=== PATIENT | male | born 1965 | race Caucasian/White ===

== ENCOUNTER 2018-12-27 12:59 | Day surgery (SDC) | payer MEDICARE, MEDICAID ==
[~2018-12-27] VITALS: Ht 165.1 cm; Wt 82.6 kg
[2018-12-27] MEDS ORDERED: LIDOCAINE 1% INJ 20 ML 20 ML VIAL ONE (13:00)
--- OUTSIDE RECORDS SUMMARY | 2018-12-27 13:02 | XMS REPORT ---
Author Author GIANLUCA HARDING Organization [facility] Address [address] [place] [address] Care Team Providers Care Mri Assistant Name Role Phone GIANLUCA HARDING Unavailable PROBLEMS Type Condition ICD9-CM Code [id number] Code Onset Dates Condition Status SNOMED Code Problem Essential hypertension I10 Active [id number] Problem Stage 5 chronic kidney disease not on chronic dialysis N18.5 Active [id number] ALLERGIES No Information ENCOUNTERS Encounter Location Date Diagnosis [facility] [address] [id number] [place] [address] [facility] [address] [id number] [place] [address] Nov Chronic kidney disease, stage 4 (severe) N18.4 ; Hypertensive chronic kidney disease with stage 1 through stage 4 chronic kidney disease, or unspecified chronic kidney disease I12.9 and Essential hypertension I10 IMMUNIZATIONS No Known Immunizations SOCIAL HISTORY Never Assessed REASON FOR VISIT PLAN OF CARE VITAL SIGNS MEDICATIONS Unknown Medications RESULTS No Results PROCEDURES No Known procedures INSTRUCTIONS MEDICATIONS ADMINISTERED No Known Medications MEDICAL (GENERAL) HISTORY Type Description Date Medical History hypertension Medical History 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
--- OUTSIDE RECORDS SUMMARY | 2018-12-27 13:02 | XMS REPORT ---
Author Author GIANLUCA HARDING Organization [facility] Address [address] [place] [address] Care Team Providers Care Technical Training Instructor Name Role Phone GIANLUCA HARDING Unavailable PROBLEMS Type Condition ICD9-CM Code [id number] Code Onset Dates Condition Status SNOMED Code Problem Essential hypertension I10 Active [id number] Problem Stage 5 chronic kidney disease not on chronic dialysis N18.5 Active [id number] ALLERGIES No Known Allergies ENCOUNTERS Encounter Location Date Diagnosis [facility] [address] [id number] [place] [address] Nov [facility] [address] [id number] [place] [address] Nov Chronic kidney disease, stage 4 (severe) N18.4 ; Hypertensive chronic kidney disease with stage 1 through stage 4 chronic kidney disease, or unspecified chronic kidney disease I12.9 and Essential hypertension I10 IMMUNIZATIONS No Known Immunizations SOCIAL HISTORY Never Assessed REASON FOR VISIT Establish Care. , Pt in kidney failure 10%, Pt states will start Dialysis when he gets medicaid., Pt moved to [place] a couple weeks ago from [place]. LAYLA Anderson PLAN OF CARE Activity Details Follow Up prn, pending labs Reason: Pending Test MICROALBUMIN/CREATININE RATIO, URINE VITAL SIGNS Height 64.5 in 2017-12-05 Weight 149.6 lbs 2017-12-05 Temperature 98.2 degrees Fahrenheit 2017-12-05 Heart Rate 112 bpm 2017-12-05 Respiratory Rate 18 2017-12-05 Oximetry 99 % 2017-12-05 BMI 25.28 kg/m2 2017-12-05 Blood pressure systolic 160 mmHg 2017-12-05 Blood pressure diastolic 108 mmHg 2017-12-05 MEDICATIONS Medication Instructions Dosage Frequency Start Date End Date Duration Status Metoprolol Tartrate 50 MG Orally Twice a day 1 tablet with food 12h Active HydrALAZINE HCl 50 MG Orally 3 times a day 1 tablet with food 8h Active Clonidine HCl 0.1 MG Orally Twice a day 1 tablet 12h Active RESULTS No Results PROCEDURES Procedure Date Ordered Result Body Site COMPREHEN METABOLIC PANEL December 05, 2017 ASSAY OF MAGNESIUM December 05, 2017 VENIPUNCT, ROUTINE* December 05, 2017 COMPLETE CBC W/AUTO DIFF WBC December 05, 2017 ASSAY OF PHOSPHORUS December 05, 2017 MICROALBUMIN, QUANTITATIVE December 05, 2017 ASSAY OF URINE CREATININE December 05, 2017 INSTRUCTIONS MEDICATIONS ADMINISTERED No Known Medications MEDICAL [...]
--- OUTSIDE RECORDS SUMMARY | 2018-12-27 13:03 | XMS REPORT ---
Author Author Avery Lucero [facility] Address [address] [place], [place] [address] Care Team Providers Care Aerodynamicist Name Role Phone Avery Lucero PCP Avery Lucero PreferredProvider Allergies and Adverse Reactions Name Reaction Notes No known allergies Plan of Treatment Planned Activity Comments Planned Date Planned Time Plan/Goal HCV genotyping ser/plas amplified probe 02/01/2018 12:00 AM HCV Ab confirm 02/01/2018 12:00 AM HEPATITIS C QUANT RNA PCR 02/01/2018 12:00 AM Liver function panel 02/01/2018 12:00 AM HIV 1 + 2 ab ser w reflex to Western blot conf 02/01/2018 12:00 AM Medications Active Name Start Date Estimated Completion Date SIG Comments sevelamer carbonate 800 mg oral tablet take 2 tablets (1,600 mg) by oral route 3 times per day with meals carvedilol 12.5 mg oral tablet take 1 tablet (12.5 mg) by oral route 2 times per day with food Valium 5 mg oral tablet 05/02/2018 07/01/2018 take 1 tablet by oral route 2 times a day as needed for 30 days atorvastatin 40 mg oral tablet 06/18/2018 TAKE 1 TABLET BY MOUTH AT BEDTIME ropinirole 3 mg oral tablet 06/18/2018 TAKE 1 TABLET BY MOUTH AT BEDTIME carvedilol 25 mg oral tablet 06/18/2018 TAKE 1 TABLET BY MOUTH TWICE DAILY gabapentin 600 mg oral tablet 06/18/2018 TAKE 2 TABLETS BY MOUTH IN THE MORNING AND TAKE 1 TABLET AT BEDTIME hydralazine 10 mg oral tablet 06/18/2018 TAKE 1 TABLET BY MOUTH THREE TIMES DAILY amitriptyline 25 mg oral tablet 06/18/2018 TAKE 1 TABLET BY MOUTH AT BEDTIME diazepam 5 mg oral tablet 06/18/2018 TAKE 1 TABLET BY MOUTH TWICE DAILY NEEDED amlodipine 10 mg oral tablet 06/18/2018 TAKE 1 TABLET BY MOUTH AT BEDTIME clonidine HCl 0.1 mg oral tablet 06/18/2018 TAKE 1 TABLET BY MOUTH ON MONDAY , MONDAY , AND MONDAY gabapentin 800 mg oral tablet 06/29/2018 10/27/2018 take 1 tablet (800 mg) by oral route 3 times per day for 30 days Diabetic Shoes 06/29/2018 as directed Name Start Date Expiration Date SIG Comments metoprolol tartrate 100 mg oral tablet 02/06/2018 06/06/2018 take 1 tablet ( 100 mg) by oral route 2 times per day for 30 days gabapentin 300 mg oral capsule 02/15/2018 03/17/2018 take 1 capsule (300 mg) by oral route 3 times per day for 30 days Discontinued Name Start Date Discontinued Date SIG Comments Valium 2 mg oral tablet 01/01/2018 02/06/2018 take 1 tablet by oral route 2 times a day as needed Problem List Not available. Vital Signs Date Time BP-Sys(mm[Hg] BP-Caryl(mm[Hg]) HR(bpm) RR(rpm) Temp WT HT HC BMI BSA BMI Percentile O2 Sat(%) 06/29/2018 9:21:00 AM 122 mmHg 70 mmHg 79 bpm 16 rpm 98.2 F 162 lbs 65 in 26.9579 kg/m 1.8358 m 98 % 06/14/2018 3:03:00 PM 158.25 lbs 65 in 26.33 kg/m2 1.81 m2 05/02/2018 11:00:00 AM 188 mmHg 100 mmHg 96 bpm 16 rpm 98.2 F 150 lbs 65 in 24.96 kg/m2 1.77 m2 99 % 02/06/2018 1:40:00 PM 170 mmHg 108 mmHg 87 bpm 18 rpm 99 F 151.25 lbs 65 in 25.1691 kg/m 1.7738 m 100 % 01/01/2018 3:03:00 PM 130 mmHg 78 mmHg 64 bpm 18 rpm 98.4 F 145 lbs 65 in 24.129 kg/m 1.74 m2 100 % Social History Name Description Comments Tobacco Current every day smoker Alcohol History of Procedures Date Ordered Description Order Status 02/06/2018 12:00 AM ECHO EXAM OF ABDOMEN Returned Results Summary Not available. History Of Immunizations Not available. History of Past Illness Name Date of Onset Comments End stage kidney disease Anemia Hypertension Hepatitis C Type 2 diabetes mellitus COPD Kidney failure May 14 2018 3:05PM Hepatitis C Jan 01 2018 3:05PM Anxiety Jan 01 2018 3:05PM Hepatitis C Feb 01 2018 9:35AM Hepatitis C Feb 06 2018 2:02PM Hypertension Feb 06 2018 1:42PM Insomnia, unspecified May 02 2018 11:05AM ESRD (end stage renal disease) May 02 2018 11:05AM Anxiety May 02 2018 11:05AM End stage kidney disease Jun 14 2018 3:03PM Diabetes Mellitus, Type II Jun 29 2018 9:30AM End stage renal disease Jun 29 2018 9:30AM Callus of heel Jun 29 2018 9:30AM Payers Insurance Name Company Name Plan Name Plan Number Policy Number Policy Group Number Start Date [employer] - [place] [employer] [place] [id number] N/A Medicare RHC Medicare RHC [id number] N/A Medicare Part A Medicare - Lab/Xray [id number] N/A History of Encounters Visit Date Visit Type Provider 06/29/2018 Office visit Avery Lucero MD 06/14/2018 Office visit Avery Lucero MD 05/02/2018 Office visit Avery Lucero MD 02/06/2018 Office visit Avery Lucero MD 01/04/2018 Hospital Denny Field MD 01/01/2018 Office visit Avery Lucero MD 12/05/2017 [facility] Denny Field MD
--- OUTSIDE RECORDS SUMMARY | 2018-12-27 13:03 | XMS REPORT ---
Author Author Avery Lucero [facility] Address [address] [place] [id number] Care Team Providers Care Basting Cleaner Name Role Phone Avery Lucero PCP Avery [...] route 2 times per day with food ropinirole 3 mg oral tablet 06/18/2018 TAKE 1 TABLET BY MOUTH AT BEDTIME gabapentin 600 mg oral tablet 06/18/2018 TAKE 2 TABLETS BY MOUTH IN THE MORNING AND TAKE 1 TABLET AT BEDTIME Diabetic Shoes 06/29/2018 as directed ropinirole 4 mg oral tablet 07/20/2018 TAKE 1 TABLET BY MOUTH AT BEDTIME diazepam 5 mg oral tablet 07/23/2018 TAKE 1 TABLET BY MOUTH AT BEDTIME Lantus Solostar U-100 Insulin 100 unit/mL (3 mL) subcutaneous insulin pen 07/26 10 units daily hydralazine 10 mg oral tablet 08/17/2018 TAKE 1 TABLET BY MOUTH THREE TIMES DAILY clonidine HCl 0.1 mg oral tablet 08/17/2018 TAKE 1 TABLET BY MOUTH ON MONDAY , MONDAY , AND MONDAY carvedilol 25 mg oral tablet 08/17/2018 TAKE 1 TABLET BY MOUTH TWICE DAILY gabapentin 800 mg oral tablet 08/17/2018 TAKE 1 TABLET BY MOUTH THREE TIMES DAILY atorvastatin 40 mg oral tablet 08/17/2018 TAKE 1 TABLET BY MOUTH AT BEDTIME amitriptyline 25 mg oral tablet 08/17/2018 TAKE 1 TABLET BY MOUTH AT BEDTIME amlodipine 10 mg oral tablet 08/17/2018 TAKE 1 TABLET BY MOUTH AT BEDTIME [place] 5-325 mg oral tablet 08/29/2018 09/28/2018 take 1 tablet by oral route 2 times a day as needed for 30 days Novolog Flexpen U-100 Insulin 100 unit/mL subcutaneous insulin pen 08/29/2018 4 units qac sevelamer carbonate 0.8 gram oral powder in packet 08/30/2018 GIVE 1 PACKET THREE TIMES DAILY WITH MEALS Name Start Date Expiration Date SIG Comments metoprolol tartrate 100 mg oral tablet 02/06/2018 06/06/2018 take 1 tablet ( 100 mg) by oral route 2 times per day for 30 days gabapentin 300 mg oral capsule 02/15/2018 03/17/2018 take 1 capsule (300 mg) by oral route 3 times per day for 30 days Valium 5 mg oral tablet 05/02/2018 07/01/2018 take 1 tablet by oral route 2 times a day as needed for 30 days Discontinued Name Start Date Discontinued Date SIG Comments Valium 2 mg oral tablet 01/01/2018 02/06/2018 take 1 tablet by oral route 2 times a day as needed Problem List Not available. Vital Signs Date Time BP-Sys(mm[Hg] BP-Caryl(mm[Hg]) HR(bpm) RR(rpm) Temp WT HT HC BMI BSA BMI Percentile O2 Sat(%) 08/29/2018 10:11:00 AM 140 mmHg 80 mmHg 70 bpm 18 rpm 98.1 F 165.25 lbs 65 in 27.4988 kg/m 1.8541 m 97 % 07/26/2018 1:49:00 PM 132 mmHg 88 mmHg 95 bpm 19 rpm 98.1 F 164.25 lbs 65 in 27.33 kg/m2 1.85 m2 98 % 06/29/2018 9:21:00 AM 122 mmHg 70 mmHg 79 bpm 16 rpm 98.2 F 162 lbs 65 in 26.96 kg/m2 1.84 m2 98 % 06/14/2018 3:03:00 PM 158.25 lbs 65 in 26.33 kg/m2 1.8144 m 05/02/2018 11:00:00 AM 188 mmHg 100 mmHg 96 bpm 16 rpm 98.2 F 150 lbs 65 in 24.96 kg/m2 1.77 m2 99 % 02/06/2018 1:40:00 PM 170 mmHg 108 mmHg 87 bpm 18 rpm 99 F 151.25 lbs 65 in 25.1691 kg/m 1.7738 m 100 % 01/01/2018 3:03:00 PM 130 mmHg 78 mmHg 64 bpm 18 rpm 98.4 F 145 lbs 65 in 24.13 kg/m2 1.74 m2 100 % Social History Name [...] Type 2 diabetes mellitus COPD Kidney failure Jan 01 2018 3:05PM Hepatitis C Jan 01 2018 [...] Callus of heel Jun 29 2018 9:30AM Diabetes mellitus out of control Jul 26 2018 1:50PM Chronic pain Jul 26 2018 1:50PM Diabetes Mellitus, Type II Aug 29 2018 10:18AM Chronic systolic heart failure Aug 29 2018 10:18AM Payers Insurance Name Company Name Plan Name Plan Number Policy Number Policy Group Number Start Date Medicare RHC Medicare RHC [id number] N/A Aetna Better Health - RHC Aetna Better Health - RHC [id number] N/A Amer[employer] - [place] [employer] [place] [id number] N/A Medicare Part A Medicare - Lab/Xray [id number] N/A History of Encounters Visit Date Visit Type Provider 08/29/2018 Office visit Avery Lucero MD 07/26/2018 Office visit Avery Lucero MD 06/29/2018 Office visit Avery Lucero MD 06/14/2018 Office visit Avery Lucero MD 05/02/2018 Office visit Avrey Lucero MD 02/06/2018 Office visit Avery Lucero MD 01/04/2018 Hospital Denny Field MD 01/01/2018 Office visit Avery Lucero MD 12/05/2017 [facility] Denny Field MD
--- OUTSIDE RECORDS SUMMARY | 2018-12-27 13:03 | XMS REPORT ---
Author Author Avery Lucero [facility] Address [address] [place], [place] [address] Care Team Providers Care Sales Development Director Name Role Phone Avery Lucero PCP Avery [...] ON MONDAY , MONDAY , AND MONDAY Name Start Date Expiration Date SIG Comments [...] HC BMI BSA BMI Percentile O2 Sat(%) 06/14/2018 3:03:00 PM 158.25 lbs 65 in 26.3339 kg/m 1.8144 m 05/02/2018 11:00:00 AM 188 mmHg 100 mmHg 96 bpm 16 rpm 98.2 F 150 lbs 65 in 24.96 kg/m2 1.77 m2 99 % 02/06/2018 1:40:00 PM 170 mmHg 108 mmHg 87 bpm 18 rpm 99 F 151.25 lbs 65 in 25.17 kg/m2 1.7738 m 100 % 01/01/2018 3:03:00 PM 130 mmHg 78 mmHg 64 bpm 18 rpm 98.4 F 145 lbs 65 in 24.129 kg/m 1.7368 m 100 % Social History Name Description Comments [...] stage kidney disease Jun 14 2018 3:03PM Payers Insurance Name Company Name Plan Name Plan Number Policy Number Policy Group Number Start Date [employer] - [place] [employer] [place] [id number] N/A Medicare RHC Medicare RHC [id number] N/A Medicare Part A Medicare - Lab/Xray [id number] N/A History of Encounters Visit Date Visit Type Provider 06/14/2018 Office visit Avery Lucero MD 05/02/2018 Office visit Avery Lucero MD 02/06/2018 Office visit Avery Lucero MD 01/04/2018 Hospital Denny Field MD 01/01/2018 Office visit Avery Lucero MD 12/05/2017 Hospital Denny Field MD
--- OUTSIDE RECORDS SUMMARY | 2018-12-27 13:03 | XMS REPORT ---
Author Author Avery Lucero [facility] Address [address] [place], [place] [address] Care Team Providers Care Pricing Clerk Name Role Phone Avery Lucero PCP Avery [...] route 2 times per day with food atorvastatin 40 mg oral tablet 06/18/2018 TAKE [...] AT BEDTIME amlodipine 10 mg oral tablet 06/18/2018 TAKE 1 TABLET BY MOUTH AT BEDTIME clonidine HCl 0.1 mg oral tablet 06/18/2018 TAKE 1 TABLET BY MOUTH ON MONDAY , MONDAY , AND MONDAY Diabetic Shoes 06/29/2018 as directed ropinirole 4 mg oral tablet 07/20/2018 TAKE 1 TABLET BY MOUTH AT BEDTIME gabapentin 800 mg oral tablet 07/20/2018 TAKE 1 TABLET BY MOUTH THREE TIMES DAILY diazepam 5 mg oral tablet 07/23/2018 TAKE 1 TABLET BY MOUTH AT BEDTIME Landilia Nelsonostar U-100 Insulin 100 unit/mL (3 mL) subcutaneous insulin pen 07/26 10 units daily [place] 5-325 mg oral tablet 07/26/2018 08/25/2018 take 1 tablet by oral route 2 times a day as needed for 30 days Name Start Date Expiration Date SIG Comments [...] HC BMI BSA BMI Percentile O2 Sat(%) 07/26/2018 1:49:00 PM 132 mmHg 88 mmHg 95 bpm 19 rpm 98.1 F 164.25 lbs 65 in 27.3323 kg/m 1.8485 m 98 % 06/29/2018 9:21:00 AM 122 mmHg [...] 1:50PM Chronic pain Jul 26 2018 1:50PM Payers Insurance Name Company Name Plan Name Plan Number Policy Number Policy Group Number Start Date Medicare RH Medicare RHC [id number] N/A [employer] - [place] [employer] [place] [id number] N/A Medicare Part A Medicare - Lab/Xray [id number] N/A History of Encounters Visit Date Visit Type Provider 07/26/2018 Office visit Avery Lucero MD 06/29/2018 Office visit Avery Lucero MD 06/14/2018 Office visit Avery Lucero MD 05/02/2018 Office visit Avery Lucero MD 02/06/2018 Office visit Avery Lucero MD 01/04/2018 Hospital Denny Field MD 01/01/2018 Office visit Avery Lucero MD 12/05/2017 [facility] Denny Field MD
--- OUTSIDE RECORDS SUMMARY | 2018-12-27 13:03 | XMS REPORT ---
Author Author Avery Lucero [facility] Address [address] [place] [id number] Care Team Providers Care Lace Burn Out Tender Name Role Phone Avery Lucero PCP Avery [...] subcutaneous insulin pen 07/26 10 units daily clonidine HCl 0.1 mg oral tablet 08/17/2018 TAKE 1 TABLET BY MOUTH ON MONDAY , MONDAY , AND MONDAY gabapentin 800 mg oral tablet 08/17/2018 TAKE 1 TABLET BY MOUTH THREE TIMES DAILY Novolog Flexpen U-100 Insulin 100 unit/mL subcutaneous insulin pen 08/29/2018 4 units qac sevelamer carbonate 0.8 gram oral powder in packet 08/30/2018 GIVE 1 PACKET THREE TIMES DAILY WITH MEALS carvedilol 25 mg oral tablet 10/12/2018 TAKE 1 TABLET BY MOUTH TWICE DAILY hydralazine 10 mg oral tablet 10/12/2018 TAKE 1 TABLET BY MOUTH THREE TIMES DAILY Lantus U-100 Insulin 100 unit/mL subcutaneous solution 10/26/2018 INJECT 20 UNITS SUBCUTANEOUS DAILY atorvastatin 40 mg oral tablet 11/09/2018 TAKE 1 TABLET BY MOUTH AT BEDTIME amlodipine 10 mg oral tablet 11/09/2018 TAKE 1 TABLET BY MOUTH AT BEDTIME amitriptyline 25 mg oral tablet 11/09/2018 TAKE 1 TABLET BY MOUTH AT BEDTIME Name Start Date Expiration Date SIG Comments metoprolol tartrate 100 mg oral tablet 02/06/2018 06/06/2018 take 1 tablet ( 100 mg) by oral route 2 times per day for 30 days Valium 5 mg oral tablet 05/02/2018 07/01/2018 take 1 tablet by oral route 2 times a day as needed for 30 days [place] 5-325 mg oral tablet 08/29/2018 09/28/2018 take [...] HC BMI BSA BMI Percentile O2 Sat(%) 11/19/2018 2:21:00 PM 144 mmHg 70 mmHg 86 bpm 16 rpm 98.1 F 182 lbs 65 in 30.2861 kg/m 1.9458 m 97 % 08/29/2018 10:11:00 AM 140 mmHg 80 mmHg 70 bpm 18 rpm 98.1 F 165.25 lbs 65 in 27.50 kg/m2 1.85 m2 97 % 07/26/2018 1:49:00 PM 132 mmHg [...] systolic heart failure Aug 29 2018 10:18AM Diabetes Mellitus, Type II Nov 19 2018 2:26PM Chronic systolic heart failure Nov 19 2018 2:26PM Payers Insurance Name Company Name Plan Name Plan Number Policy Number Policy Group Number Start Date Medicare RHC Medicare RHC [id number] N/A Aetna Better Health - RHC Aetna Better Health - RHC [id number] N/A [employer] - [place] - [place] State Plan [employer] - [place] State Plan [id number] N/A Medicare Part A Medicare - Lab/Xray [id number] N/A History of Encounters Visit Date Visit Type Provider 11/19/2018 Office visit Avery Lucero MD 08/29/2018 Office visit Avery Lucero MD 07/26/2018 Office visit Avery Lucero MD 06/29/2018 Office visit Avery Lucero MD 06/14/2018 Office visit Avery Lucero MD 05/02/2018 Office visit Avery Lucero MD 02/06/2018 Office visit Avery Lucero MD 01/04/2018 Hospital Denny Field MD 01/01/2018 Office visit Avery Lucero MD 12/05/2017 Hospital Denny Field MD
--- OUTSIDE RECORDS SUMMARY | 2018-12-27 13:04 | XMS REPORT ---
Author Author Avery Lucero [facility] Address [address] [place], [place] [address] Care Team Providers Care Java Software Developer Name Role Phone Avery Lucero PCP Avery [...] to Western blot conf 02/01/2018 12:00 AM [employer] (SINGLE ORGAN) 02/06/2018 12:00 AM Medications Active Name Start Date Estimated Completion Date SIG Comments hydralazine 10 mg oral tablet take 1 tablet by oral route 3 times a day metoprolol tartrate 50 mg oral tablet take 1 tablet (50 mg) by oral route 2 times per day with meals sevelamer carbonate 800 mg oral tablet take 2 tablets (1,600 mg) by oral route 3 times per day with meals Name Start Date Expiration Date SIG Comments Lyrica 100 mg oral capsule 01/01/2018 01/31/2018 take 1 capsule (100 mg) by oral route 2 times per day for 30 days Discontinued Name Start Date Discontinued Date SIG Comments Valium 2 mg oral tablet 01/01/2018 02/06/2018 take 1 tablet by oral route 2 times a day as needed Problem List Not available. Vital Signs Date Time BP-Sys(mm[Hg] BP-Caryl(mm[Hg]) HR(bpm) RR(rpm) Temp WT HT HC BMI BSA BMI Percentile O2 Sat(%) 02/06/2018 1:40:00 PM 170 mmHg 108 mmHg 87 bpm 18 rpm 99 F 151.25 lbs 65 in 25.1691 kg/m 1.7738 m 100 % 01/01/2018 3:03:00 PM 130 mmHg 78 mmHg 64 bpm 18 rpm 98.4 F 145 lbs 65 in 24.13 kg/m2 1.74 m2 100 % Social History Name Description Comments Tobacco Current every day smoker Alcohol History of Procedures Not available. Results Summary Not available. History Of Immunizations Not available. History of Past Illness Name Date of Onset Comments End stage kidney disease Anemia Hypertension Hepatitis C Type 2 diabetes mellitus COPD Kidney failure Jan 01 2018 3:05PM Hepatitis C Jan 01 2018 3:05PM Anxiety Jan 01 2018 3:05PM Hepatitis C Feb 01 2018 9:35AM Hepatitis C Feb 06 2018 2:02PM Payers Not available. History of Encounters Visit Date Visit Type Provider 02/06/2018 Office visit Avery Lucero MD 01/04/2018 [facility] Denny Field MD 01/01/2018 Office visit Avery Lucero MD 12/05/2017 [facility] Denny Field MD
--- OUTSIDE RECORDS SUMMARY | 2018-12-27 13:04 | XMS REPORT ---
Author Author Avery Lucero [facility] Address [address] [place], [place] [address] Care Team Providers Care Metal Weigher Name Role Phone Avery Lucero PCP Avery [...] to Western blot conf 02/01/2018 12:00 AM [employer] (SINGLE ORGAN) 02/06/2018 12:00 AM Medications Active Name Start Date Estimated Completion Date SIG Comments hydralazine 10 mg oral tablet take 1 tablet by oral route 3 times a day sevelamer carbonate 800 mg oral tablet take 2 tablets (1,600 mg) by oral route 3 times per day with meals gabapentin 300 mg oral capsule 02/06/2018 03/08/2018 take 1 capsule (300 mg) by oral route 3 times per day for 30 days metoprolol tartrate 100 mg oral tablet 02/06/2018 [...] 2018 2:02PM Hypertension Feb 06 2018 1:42PM Payers Not available. History of Encounters Visit Date Visit Type Provider 02/06/2018 Office visit Avery Lucero MD 01/04/2018 [facility] Denny iFeld MD 01/01/2018 Office visit Avery Lucero MD 12/05/2017 [facility] Denny Field MD
--- OUTSIDE RECORDS SUMMARY | 2018-12-27 13:04 | XMS REPORT ---
Author Author Avery Lucero [facility] Address [address] [place], [place] [address] Care Team Providers Care [place] Construction Supervisor Name Role Phone Avery Lucero PCP Avery [...] with food atorvastatin 40 mg oral tablet 02/15/2018 11/12/2018 take 1 tablet (40 mg) by oral route once daily at bedtime for 30 days hydralazine 10 mg oral tablet 02/15/2018 take 1 tablet by oral route 3 times a day Valium 5 mg oral tablet 05/02/2018 07/01/2018 take 1 tablet by oral route 2 times a day as needed for 30 days amitriptyline 25 mg oral tablet 05/02/2018 08/30/2018 take 1 tablet (25 mg) by oral route once daily at bedtime for 30 days gabapentin 600 mg oral tablet 05/02/2018 09/29/2018 take 1 tablet (600 mg) by oral route 3 times per day for 30 days Name Start Date Expiration [...] 2018 11:05AM Anxiety May 02 2018 11:05AM Payers Insurance Name Company Name Plan Name Plan Number Policy Number Policy Group Number Start Date [employer] - [place] Amer[employer] - [facility] [place] State Plan [id number] N/A Medicare RHC Medicare RHC [id number] N/A Medicare Part A Medicare - Lab/Xray [id number] N/A History of Encounters Visit Date Visit Type Provider 06/14/2018 Office visit Avery Lucero MD 05/02/2018 Office visit Avery Lucero MD 02/06/2018 Office visit Avery Lucero MD 01/04/2018 [facility] Denny Field MD 01/01/2018 Office visit Avery Lucero MD 12/05/2017 [facility] Denny Field MD
--- OUTSIDE RECORDS SUMMARY | 2018-12-27 13:04 | XMS REPORT ---
Author Author Avery Lucero [facility] Address [address] [place], [place] [id number] Care Team Providers Care Steam Clean Machine Operator Name Role Phone Avery Lucero PCP Avery Lucero PreferredProvider Allergies and Adverse Reactions Name Reaction Notes No known allergies Plan of Treatment Not available. Medications Active Name Start Date Estimated Completion [...] route 3 times per day with meals Lyrica 100 mg oral capsule 01/01/2018 01/31/2018 take 1 capsule (100 mg) by oral route 2 times per day for 30 days Valium 2 mg oral tablet 01/01/2018 take 1 tablet by oral route 2 times a day as needed Problem List Not available. Vital Signs Date Time BP-Sys(mm[Hg] BP-Caryl(mm[Hg]) HR(bpm) RR(rpm) Temp WT HT HC BMI BSA BMI Percentile O2 Sat(%) 01/01/2018 3:03:00 PM 130 mmHg 78 mmHg [...] 2018 3:05PM Anxiety Jan 01 2018 3:05PM Payers Not available. History of Encounters Visit Date Visit Type Provider 01/01/2018 Office visit Avery Lucero MD
--- OUTSIDE RECORDS SUMMARY | 2018-12-27 13:04 | XMS REPORT | Continuity of Care Document ---
Author Organization Unknown Address Unknown Allergies Active Description Code Type Severity Reaction Onset Reported/Identified Relationship to Patient Clinical Status Yes NKDA - NO KNOWN DRUG ALLERGIES [id number] CLASS N/A N/A Medications There is no data. 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 12/05/2017 P I129 Hypertensive chronic kidney disease with stage 1 through stage 4 chronic kidney disease, or unspecified chronic kidney disease 12/05/2017 S N179 Acute kidney failure, unspecified 12/05/2017 S N183 Chronic kidney disease, stage 3 (moderate) 12/05/2017 S [id number] Nicotine dependence, cigarettes, uncomplicated 12/05/2017 P I120 Hypertensive chronic kidney disease with stage 5 chronic kidney disease or end stage renal disease 12/05/2017 S N185 Chronic kidney disease, stage 5 12/05/2017 S R55 Syncope and collapse 12/05/2017 S R9431 Abnormal electrocardiogram [ECG] [EKG] 12/05/2017 S Z751 Person awaiting admission to adequate facility elsewhere 12/05/2017 S 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 Results There is no data. Encounters ACCT No. Visit Date/Time Discharge Status Pt. Type Provider Facility Loc./Unit Complaint [id number] 11/19/2018 14:52:07 11/19/2018 23:59:59 [facility] Outpatient Avery Lucero [id number] 08/29/2018 10:49:37 08/29/2018 23:59:59 [facility] Outpatient Avery Lucero [id number] 07/26/2018 14:45:07 07/26/2018 23:59:59 [facility] Outpatient Avery Lucero [id number] 06/29/2018 10:07:31 06/29/2018 23:59:59 [facility] Outpatient EstephanialingAvery mayen [id number] 06/14/2018 15:32:56 06/14/2018 23:59:59 [facility] Outpatient Avery Lucero [id number] 05/02/2018 11:14:02 05/02/2018 23:59:59 [facility] Outpatient HetAvery oneal [id number] 02/06/2018 14:38:04 02/06/2018 23:59:59 [facility] Outpatient Avery Lucero [id number] 02/01/2018 17:07:08 02/01/2018 23:59:59 [facility] Outpatient Denny Field [id number] 01/04/2018 16:40:30 01/04/2018 23:59:59 [facility] Outpatient Denny Field [id number] 01/01/2018 15:52:14 01/01/2018 23:59:59 [facility] Outpatient Avery Lucero [id number] 10/22/2018 07:24:35 Document Registration [id number] 10/12/2018 11:53:18 Document Registration [id number] 07/02/2018 07:30:03 Document Registration [id number] 02/06/2018 13:56:32 Document Registration [id number] 01/11/2018 16:35:19 Document Registration [id number] 01/08/2018 22:54:38 Document Registration [id number] 01/04/2018 19:17:05 Document Registration [id number] 01/04/2018 16:41:49 Document Registration [id number] 01/04/2018 16:29:41 Document Registration [id number] 12/28/2017 22:14:48 Document Registration [id number] 12/28/2017 22:14:47 Document Registration [id number] 12/26/2017 18:36:25 Document Registration [id number] 12/26/2017 16:38:59 Document Registration [id number] 12/05/2017 23:01:00 Document Registration [id number] 12/05/2017 18:40:00 Document Registration [id number] 12/05/2017 15:40:00 12/05/2017 23:59:59 [facility] Outpatient GIANLUCA HARDING
--- OUTSIDE RECORDS SUMMARY | 2018-12-27 13:04 | XMS REPORT ---
Author Author Avery Lucero [facility] Address [address] [place], [place] [id number] Care Team Providers Care Accounts Administrator Name Role Phone Avery Lucero PCP Avery [...] route 3 times per day with meals metoprolol tartrate 100 mg oral tablet 02/06/2018 06/06/2018 take 1 tablet ( 100 mg) by oral route 2 times per day for 30 days carvedilol 12.5 mg oral tablet take 1 [...] Name Start Date Expiration Date SIG Comments gabapentin 300 mg oral capsule 02/15/2018 03/17/2018 [...] HC BMI BSA BMI Percentile O2 Sat(%) 05/02/2018 11:00:00 AM 188 mmHg 100 mmHg 96 bpm 16 rpm 98.2 F 150 lbs 65 in 24.9611 kg/m 1.7665 m 99 % 02/06/2018 1:40:00 PM 170 mmHg 108 mmHg 87 bpm 18 rpm 99 F 151.25 lbs 65 in 25.17 kg/m2 1.77 m2 100 % 01/01/2018 3:03:00 PM 130 mmHg [...] 11:05AM Anxiety May 02 2018 11:05AM Payers Not available. History of Encounters Visit Date Visit Type Provider 05/02/2018 Office visit Avery Lucero MD 02/06/2018 Office visit Avery Lucero MD 01/04/2018 [facility] Denny Field MD 01/01/2018 Office visit Avery Lucero MD 12/05/2017 [facility] Denny Field MD
--- OUTSIDE RECORDS SUMMARY | 2018-12-27 13:04 | XMS REPORT ---
Author Author Avery Lucero [facility] Address [address] [place], [place] [id number] Care Team Providers Care Furnace Installer Helper Name Role Phone Avery Lucero PCP Avery [...]
--- OUTSIDE RECORDS SUMMARY | 2018-12-27 13:04 | XMS REPORT ---
Author Author Avery Lucero [facility] Address [address] [place], [place] [phone] Care Team Providers Care Mail Processing Equipment Mechanic Name Role Phone Avery Lucero PCP Avery [...] route 3 times per day with meals Valium 2 mg oral tablet 01/01/2018 take 1 tablet by oral route 2 times a day as needed Name Start Date Expiration Date SIG Comments Lyrica 100 mg oral capsule 01/01/2018 01/31/2018 take 1 capsule (100 mg) by oral route 2 times per day for 30 days Problem List Not available. Vital Signs Date [...] 3:05PM Hepatitis C Feb 01 2018 9:35AM Payers Not available. History of Encounters Visit Date Visit Type Provider 01/01/2018 Office visit Avery Lucero MD 12/05/2017 [facility] Denny Field MD
[2018-12-27 13:12] VITALS: BP 183/96
[2018-12-27] MEDS ORDERED: LIDOCAINE 1% INJ 20 ML 20 ML VIAL INJ ONE (13:15)
[2018-12-27 15:04] LABS: PROTHROMBIN TIME PATIENT 13.6 SEC (12.2-14.7)
--- NOTE | 2018-12-27 17:24 | Cardiology Post Procedure Note ---
Post-Procedure Note Physician (s)/Instructor Decorating (s) Physician Beka MURPHY MD Pre-Procedure Diagnosis Pre-Procedure Diagnosis: End stage renal disease, central dialysis tunneled catheter removal. Post-Procedure Note Procedure Start Date: December 27, 2018 Procedure Start Time: 15:00 Name of Procedure: Central dialysis tunneled catheter removal Findings/Procedure Note This is a 53-year-old patient with end-stage renal disease on hemodialysis and follows Dr Liv Murphy in [facility]. He has a central dialysis tunneled venous catheter which requires removal. He was brought to the heart center after informed consent was taken. No evidence of infection, clotting or coagulopathy. The tunneled catheter is in the right upper chest area which was draped and prepped in the usual sterilized fashion. Lidocaine was given at the insertion site. Blunt dissection was done to remove any adhesions. The patient was At 31. Once the tunneled catheter was free of all adhesions, the patient was asked to do a Valsalva and hold his breath and in one quick motion the tunneled catheter was taken out and pressure done at the insertion site to achieve hemostasis. This was done for 5 minutes and hemostasis was confirmed. Wound dressing was done with Steri-Strips and bandage. All discharge instructions were given. Estimated blood loss (mL): 5 ml Contrast Amount: none. Post-Procedure Diagnosis Post-operative diagnosis: End-stage renal disease, Central dialysis tunneled catheter removal. Beka MURPHY MD December 27, 2018 5:24 pm
== END 2018-12-27 15:34 | disposition home or self-care (01) ==
LOC: CATH 12:59
PROVIDERS: ATTEND Internal Medicine Interventional Cardiology
DX: N18.6 End stage renal disease (principal); Z79.899 Other long term (current) drug therapy; Z79.01 Long term (current) use of anticoagulants; Z79.4 Long term (current) use of insulin
CPT/HCPCS: 36415; 36589; 85610